=== PATIENT | female | born 1955 | race Caucasian/White ===

== ENCOUNTER 2018-09-29 21:19 | Emergency (ER) | payer SELFPAY ==
[~2018-09-29] VITALS: Ht 165.1 cm; Wt 52.2 kg
--- NOTE | 2018-09-29 21:37 | NUR ---
Patient to ER bed H1 to gown for evaluation. Side rails up.
--- NOTE | 2018-09-29 21:37 | NUR ---
JINA Valdivia at bedside examining patient.
[2018-09-29 21:38] VITALS: BP_SYST 146
--- NOTE | 2018-09-29 21:41 | NUR ---
ER Dr. Valdivia at bedside administering eye drops.
[2018-09-29] MEDS ORDERED: TETRACAINE HCL 0.5% OPHTHALMIC DROPS 15 ML OP ONE (21:45)
--- NOTE | 2018-09-29 21:49 | NUR ---
LASO at bedside speaking with patient.
--- NOTE | 2018-09-29 22:25 | NUR ---
flushed bilateral eyes with normal saline for about 10 minutes. Pt tolerated well.
[2018-09-29 23:26] VITALS: BP_SYST 135
--- NOTE | 2018-09-29 23:26 | NUR ---
Patient given written and verbal discharge instructions and verbalizes understanding. ER MD discussed with patient the results and treatment provided. Patient in stable condition. ID arm band removed. No Rx given. Patient educated on pain management and to follow up with PMD. Pain Scale 0. Opportunity for questions provided and answered. Medication side effect fact sheet provided.
== END 2018-09-29 23:26 | disposition home or self-care (01) ==
LOC: SED 21:19
DX: H57.89 Other specified disorders of eye and adnexa (principal); Z77.098 Contact with and (suspected) exposure to other hazardous, chiefly nonmedicinal, chemicals
CPT/HCPCS: 99283